=== PATIENT | female | born 1985 | race Two or more races ===

== ENCOUNTER 2017-11-08 19:00 | Emergency (ER) | payer MEDICAID ==
[~2017-11-08] VITALS: Ht 165.1 cm; Wt 72.1 kg
[2017-11-08 21:46] VITALS: BP 135/81
== END 2017-11-08 22:01 | disposition home or self-care (01) ==
LOC: ER 19:00
DX: O44.02 Complete placenta previa NOS or without hemorrhage, second trimester (principal); O26.852 Spotting complicating pregnancy, second trimester; Z3A.19 19 weeks gestation of pregnancy
CPT/HCPCS: 36415; 76805; 84702

== ENCOUNTER 2018-02-17 10:45 | Observation (INO) | payer MEDICAID ==
[~2018-02-17] VITALS: Ht 165.1 cm; Wt 81.6 kg
[2018-02-17] MEDS ORDERED: LACTATED RINGER'S 1,000 ML IV ONE (11:22)
[2018-02-17] MEDS: TERBUTALINE SULFATE 1 MG/ML 1ML VIAL SC SCH ×3 (11:50→12:32)
[2018-02-17 12:36] LABS: INR 0.92 (0.9-1.15); Partial Thromboplastin Time 27.4 sec (23.78-33.04); Prothrombin Time 9.9 sec (9.27-12.13)
[2018-02-17 12:42] LABS: Basophils # (auto) 0 uL; Basophils % (auto) 0.1 % (0.0-2.0); Eosinophils # (auto) 0 uL; Eosinophils % (auto) 0.3 % (0.0-7.0); Hematocrit 31.4 % (36.0-46.0); Hemoglobin 10.6 g/dL (12.2-16.2); Lymphocytes # (auto) 1.9 uL; Lymphocytes % (auto) 22.2 % (10.0-50.0); Mean Corpuscular Hemoglobin 30.6 pg (28.0-32.0); Mean Corpuscular Hgb Conc. 33.7 g/dL (32.0-36.0); Mean Corpuscular Volume 90.9 fL (80.0-100.0); Monocytes # (auto) 0.6 uL; Monocytes % (auto) 6.8 % (0.0-12.0); Neutrophils # (auto) 6.1 uL; Neutrophils % (auto) 70.6 % (37.0-80.0); Nucleated Red Blood Cells % 0.1 %; Red Blood Cells 3.45 10^6/uL (4.0-5.20); Red Cell Distribution Width 14.6 % (11.8-14.3); White Blood Cell 8.6 10^3/uL (4.4-10.8)
[2018-02-17 12:47] LABS: Albumin 1.5 g/dL (3.4-5.0); BUN/Creatinine Ratio 19.1; Bilirubin, Total 0.3 mg/dL (0.2-1.0); Calcium 7.9 mg/dL (8.5-10.1); Potassium 3.9 mmol/L (3.5-5.1); Uric Acid 6.2 mg/dL (2.6-6.0)
[2018-02-17 12:55] LABS: Platelet Count (auto) 79 10^3/uL (140-450)
[2018-02-17 13:31] LABS: Urine Bacteria FEW /hpf (None Seen); Urine Blood Negative /uL (Negative); Urine Mucus FEW (None Seen); Urine Specific Gravity 1.015 (1.001-1.035); Urine WBC 4 /hpf (0 - 5)
[2018-02-17] MEDS ORDERED: GLYB2.5T8 PO (13:42)
[2018-02-17] MEDS ORDERED: ACET-1156 PO (13:43)
== END 2018-02-17 13:10 | disposition home or self-care (01) | DRG 563 ==
LOC: LDRP 10:45
PROVIDERS: ADMIT Obstetrics & Gynecology; ATTEND Obstetrics & Gynecology
DX: O60.03 Preterm labor without delivery, third trimester (principal); Z3A.33 33 weeks gestation of pregnancy
CPT/HCPCS: 36415; 59025; 76818; 80053; 81001; 82948; 82962; 84550; 85025; 85610; 85730; G0378; J3105

== ENCOUNTER 2018-02-18 05:52 | Inpatient (IN) | payer MEDICAID ==
[~2018-02-18] VITALS: Ht 165.1 cm; Wt 81.6 kg
[~2018-02-18 05:52] MED LIST: ACET-1156 PO; GLYB2.5T8 PO
[2018-02-18] MEDS ORDERED: MAGNESIUM SULFATE 100 ML IV ONE ×2 (06:12→06:15)
[2018-02-18] MEDS ORDERED: MAGNESIUM SULFATE 40MG/ML 1,000 ML IV ONE (06:12)
[2018-02-18] MEDS ORDERED: hydrALAZINE HCL 20 MG/ML VL ONE (06:12)
[2018-02-18] MEDS ORDERED: BETAMETHASONE ACET (6MG/ML) 5ML VIAL ONE (06:14)
[2018-02-18] MEDS ORDERED: MAGNESIUM SULFATE 40MG/ML 1,000 ML IV SCH (06:15)
[2018-02-18] MEDS ORDERED: hydrALAZINE HCL 20 MG/ML VL IV ONE ×2 (06:20→10:00)
[2018-02-18] MEDS ORDERED: LACT. RINGERS/OXYTOCIN 20UNITS 1,000 ML IV SCH (06:21)
[2018-02-18] MEDS ORDERED: LACTATED RINGER'S 1,000 ML IV SCH (06:21)
[2018-02-18] MEDS ORDERED: PHISODERM TOP SOLN 240ML BTL TOP PRN (06:30)
[2018-02-18] MEDS ORDERED: DERMOPLAST 60ML BOTTLE TOP PRN (06:30)
[2018-02-18] MEDS ORDERED: LIDOCAINE 2% (LOCAL ANESTH.) PF 5ml SDV ID ONE (06:30)
[2018-02-18] MEDS ORDERED: AMPICILLIN SOD 2GM INJ 2 GM in SODIUM CHL 0.9% 100 ML IV SCH (06:30)
[2018-02-18] MEDS ORDERED: METHYLERGONOVINE MALEATE 0.2 MG/ML AMP IM PRN (06:30)
[2018-02-18] MEDS ORDERED: WITCH HAZEL-GLYCERIN PAD TOP PRN (06:30)
[2018-02-18] MEDS ORDERED: AMPICILLIN SOD 1 GM VL ONE ×2 (06:39→06:40)
[2018-02-18] MEDS ORDERED: BETAMETHASONE ACET (6MG/ML) 5ML VIAL IM ONE (07:00)
[2018-02-18 07:03] LABS: Basophils # (auto) 0 uL; Basophils % (auto) 0.1 % (0.0-2.0); Eosinophils # (auto) 0 uL; Eosinophils % (auto) 0.5 % (0.0-7.0); Hematocrit 30.9 % (36.0-46.0); Hemoglobin 10.5 g/dL (12.2-16.2); Lymphocytes # (auto) 2.3 uL; Lymphocytes % (auto) 25.8 % (10.0-50.0); Mean Corpuscular Volume 91.3 fL (80.0-100.0); Monocytes # (auto) 0.5 uL; Neutrophils # (auto) 6.1 uL; Neutrophils % (auto) 67.6 % (37.0-80.0); Nucleated Red Blood Cells % 0.1 %; Platelet Count (auto) 82 10^3/uL (140-450); Red Blood Cells 3.39 10^6/uL (4.0-5.20); Red Cell Distribution Width 14.8 % (11.8-14.3)
[2018-02-18 07:16] LABS: INR 0.89 (0.9-1.15); Prothrombin Time 9.6 sec (9.27-12.13)
[2018-02-18 07:25] LABS: Albumin 1.4 g/dL (3.4-5.0); BUN/Creatinine Ratio 12.7; Bilirubin, Total 0.3 mg/dL (0.2-1.0); Calcium 7.8 mg/dL (8.5-10.1); Potassium 3.7 mmol/L (3.5-5.1); Total Protein 4.9 g/dL (6.4-8.2); Uric Acid 6.1 mg/dL (2.6-6.0)
[2018-02-18] MEDS ORDERED: TERBUTALINE SULFATE 1 MG/ML 1ML VIAL SC ONE ×3 (07:30→09:00)
[2018-02-18 08:13] LABS: Alcohol, Urine < 3.0 mg/dL (0-5); Amphetamine Screen, Urine NEGATIVE (NEGATIVE); Barbiturate Scree,Urine NEGATIVE (NEGATIVE); Benzodiazephine Screen, Urine NEGATIVE (NEGATIVE); Cannabinoid Screen, Urine NEGATIVE (NEGATIVE); Cocaine Screen, Urine NEGATIVE (NEGATIVE); Opiate Scree,Urine NEGATIVE (NEGATIVE); Phencyclidine Screen, Urine NEGATIVE (NEGATIVE)
[2018-02-18 08:28] LABS: Urine Bacteria NONE SEEN /hpf (None Seen); Urine Blood TRACE /uL (Negative); Urine WBC 1 /hpf (0 - 5)
== END 2018-02-18 09:30 | disposition short-term general hospital (02) | DRG 566 ==
LOC: LDRP 05:52
PROVIDERS: ADMIT Obstetrics & Gynecology; ATTEND Obstetrics & Gynecology
DX: O13.3 Gestational [pregnancy-induced] hypertension without significant proteinuria, third trimester (principal); O60.03 Preterm labor without delivery, third trimester; O24.419 Gestational diabetes mellitus in pregnancy, unspecified control; O99.12 Other diseases of the blood and blood-forming organs and certain disorders involving the immune mechanism complicating childbirth; O77.0 Labor and delivery complicated by meconium in amniotic fluid; O14.93 Unspecified pre-eclampsia, third trimester; Z3A.33 33 weeks gestation of pregnancy
CPT/HCPCS: 36415; 59025; 80053; 80307; 81001; 81002; 82962; 84550; 85025; 85610; 85730; 86850; 86870; 86900; 86901; 96365; 96366; 96372; 96374; 96375

== ENCOUNTER 2019-11-17 19:44 | Emergency (ER) | payer MEDICAID ==
[~2019-11-17] VITALS: Ht 162.6 cm; Wt 69.9 kg
[2019-11-17 20:14] VITALS: BP 143/83
== END 2019-11-17 23:17 | disposition left against medical advice (07) ==
LOC: ER 19:44
DX: O46.91 Antepartum hemorrhage, unspecified, first trimester (principal); Z3A.01 Less than 8 weeks gestation of pregnancy; Z53.21 Procedure and treatment not carried out due to patient leaving prior to being seen by health care provider

== ENCOUNTER 2022-12-04 22:21 | Emergency (ER) | payer MEDICAID ==
[~2022-12-04] VITALS: Ht 160 cm; Wt 64.0 kg
[2022-12-04 22:42] LABS: Basophils # (auto) 0 10 ^3/uL (0-0.2); Basophils % (auto) 0.4 % (0.0-2.0); Eosinophils # (auto) 0.1 10 ^3/uL (0-0.8); Eosinophils % (auto) 0.9 % (0.0-7.0); Hematocrit 39.1 % (36.0-46.0); Hemoglobin 13.9 g/dL (12.2-16.2); Lymphocytes # (auto) 2.4 10 ^3/uL (0.4-5.4); Lymphocytes % (auto) 33.5 % (10.0-50.0); Mean Corpuscular Hemoglobin 31.3 pg (28.0-32.0); Mean Corpuscular Hgb Conc. 35.6 g/dL (32.0-36.0); Mean Corpuscular Volume 87.9 fL (80.0-100.0); Monocytes # (auto) 0.6 10 ^3/uL (0-1.3); Neutrophils % (auto) 57.2 % (37.0-80.0); Nucleated Red Blood Cells % 0.2 %; Red Blood Cells 4.44 10^6/uL (4.0-5.20); White Blood Cell 7.1 10^3/uL (4.4-10.8)
[2022-12-04 23:00] LABS: Albumin 3.3 g/dL (3.4-5.0); BUN/Creatinine Ratio 14.5 (10.0-20.0); Calcium 8.1 mg/dL (8.5-10.1); Magnesium 1.8 mg/dL (1.6-2.6); Potassium 3.8 mmol/L (3.5-5.1)
[2022-12-04] MEDS ORDERED: SODIUM CHLORIDE 0.9% 1,000 ML IV ONE (23:00)
[2022-12-04 23:03] LABS: Bilirubin, Total 0.3 mg/dL (0.2-1.0); Total Protein 6.8 g/dL (6.4-8.2)
[2022-12-05] MEDS ORDERED: InsuLIN REG 1unit/0.01ml Soln (100units/ml) IV ONE (00:30)
[2022-12-05 06:42] VITALS: BP 102/59
== END 2022-12-05 01:08 | disposition home or self-care (01) ==
LOC: EDBD 22:21 → ER 22:21
DX: R07.89 Other chest pain (principal); E11.65 Type 2 diabetes mellitus with hyperglycemia; I10 Essential (primary) hypertension
CPT/HCPCS: 36415; 71045; 80053; 82962; 83735; 83880; 84484; 85025; 93005; 96374; 99285; J1815; J7030; 96361